=== PATIENT | male | born 1955 | race Caucasian/White ===

== ENCOUNTER 2016-08-20 06:55 | Emergency (ER) | payer OTHER ==
[~2016-08-20] VITALS: Ht 170.2 cm; Wt 86.0 kg
[2016-08-20 06:57] VITALS: Ht 170.2 cm; Wt 86.0 kg
[2016-08-20 07:38] LABS: ADD SCAN DIFF NO
[2016-08-20 07:44] LABS: BASOPHIL # 0.1 10^3/ul (0.0-0.1); BASOPHILS % 0.9 % (0.0-2.0); EOSINOPHILS # 0.2 10^3/ul (0.0-0.5); EOSINOPHILS % 3.8 % (0.0-7.0); HEMATOCRIT 45.4 % (42.0-52.0); HEMOGLOBIN 15.9 g/dl (14.0-18.0); LYMPHOCYTES # 2.2 10^3/ul (0.8-2.9); LYMPHOCYTES % 38.7 % (15.0-51.0); MEAN CORPUSCULAR HEMOGLOBIN 29.9 pg (29.0-33.0); MEAN CORPUSCULAR VOLUME 85.5 fl (82.0-101.0); MEAN PLATELET VOLUME 9.9 fl (7.4-10.4); MONOCYTE # 0.6 10^3/ul (0.3-0.9); MONOCYTES % 10.1 % (0.0-11.0); NEUTROPHIL # 2.6 10^3/ul (1.6-7.5); PLATELET COUNT 209 10^3/UL (140-415); RED BLOOD COUNT 5.31 10^6/ul (4.70-6.10); RED CELL DISTRIBUTION WIDTH 12.8 % (11.5-14.5); WHITE BLOOD COUNT 5.6 10^3/ul (4.8-10.8)
[2016-08-20] MEDS ORDERED: MAXZ25 PO (08:08)
[2016-08-20 08:09] LABS: ALANINE AMINOTRANSFERASE 43 IU/L (13-69); ALBUMIN 4.3 g/dl (3.3-4.9); ALBUMIN/GLOBULIN RATIO 1.22; ALKALINE PHOSPHATASE 71 IU/L (42-121); ANION GAP 11 (8-16); ASPARTATE AMINO TRANSFERASE 29 IU/L (15-46); BILIRUBIN,INDIRECT 0.3 mg/dl (0-1.1); BILIRUBIN,TOTAL 0.3 mg/dl (0.2-1.3); BLOOD UREA NITROGEN 14 mg/dl (7-20); CALCIUM 8.8 mg/dl (8.4-10.2); CARBON DIOXIDE 22 mmol/L (21-31); CHLORIDE 110 mmol/L (97-110); CREATININE 0.98 mg/dl (0.61-1.24); GLUCOSE 119 mg/dl (70-220); POTASSIUM 3.8 mmol/L (3.5-5.1); SODIUM 139 mmol/L (135-144); TOTAL PROTEIN 7.8 g/dl (6.1-8.1)
[2016-08-20] MEDS ORDERED: AMLO-147 PO (08:09)
[2016-08-20] MEDS ORDERED: ATOR10TA65 PO (08:09)
[2016-08-20 08:17] LABS: INR 1.01; PROTIME 13.3 Sec (12.2-14.2)
[2016-08-20 08:18] LABS: PARTIAL THROMBOPLASTIN TIME 26.9 Sec (25.0-35.0)
[2016-08-20 08:30] LABS: TROPONIN-I < 0.012 ng/ml (0.00-0.12)
[2016-08-20] MEDS ORDERED: PANT40TA3 PO (08:35)
[2016-08-20] MEDS ORDERED: ONDA4TAB14 PO (08:35)
--- NOTE | 2016-08-20 08:38 | ERD ---
ER Documentation Chief Complaint Date/Time DATE: 08/20/16 TIME: 08:38 Chief Complaint GENERALIZED ABDOMINAL AND BLOODY STOOL SINCE FRIDAY HPI Patient is a 61-year-old male with hypertension and high cholesterol presents with abdominal pain. The symptoms started on Friday. The patient has had diarrhea. There is been red blood mixed with stool. This happens with bowel movements. He denies syncope or loss of consciousness. He feels distended. He has had no treatment as of yet. He said this is the first time this is happened. Upon review of old medical records this is the patient's first visit to the emergency department. His primary doctor is Dr. Duran. ROS All systems reviewed and are negative except as per history of present illness. Medications Home Meds Active Scripts Pantoprazole* (Protonix*) 40 Mg Tablet.dr, 40 MG PO DAILY, #20 TAB Prov:VARUN ROJAS MD 08/20/16 Ondansetron (Ondansetron Odt) 4 Mg Tab.rapdis, 4 MG PO Q6H Y for NAUSEA AND/OR VOMITING, #30 TAB Prov:VARUN ROJAS MD 08/20/16 Reported Medications Atorvastatin Calcium (Atorvastatin Calcium) 10 Mg Tablet, 10 MG PO QHS, #30 TAB 08/20/16 Amlodipine Besylate* (Amlodipine Besylate*) 10 Mg Tablet, 10 MG PO DAILY, #30 TAB 08/20/16 Triamterene/Hctz* (Maxzide (37.5-25)*) 1 Each Tablet, 1 EACH PO DAILY, #30 TAB 08/20/16 Allergies Allergies: Coded Allergies: No Known Allergy (Unverified , 08/20/16) PMhx/Soc Hx Cardiac Disorders: Yes (htn, cholesterol) Hx Alcohol Use: No Hx Substance Use: No Hx Tobacco Use: No Smoking Status: Never smoker FmHx Family History: No diabetes Physical Exam Vitals Vital Signs Date Time Temp Pulse Resp B/P Pulse Ox O2 Delivery O2 Flow Rate FiO2 08/20/16 08:53 79 20 130/76 99 Room Air 08/20/16 07:27 Nasal Cannula 2 08/20/16 06:57 98.9 75 19 161/86 95 Physical Exam Const: No acute distress Head: Atraumatic Eyes: Normal Conjunctiva ENT: Normal External Ears, Nose and Mouth. Neck: Full range of motion..~ No meningismus. Resp: Clear to auscultation bilaterally Cardio: Regular rate and rhythm, no murmurs Abd: Soft, non tender, non distended. Normal bowel sounds Skin: No petechiae or rashes Back: No midline or flank tenderness Ext: No cyanosis, or edema Neur: Awake and alert Rectal: No active bleeding, no masses palpated, heme negative stool Result Diagram: 08/20/1672208/20/16722 Results 24 hrs Laboratory Tests Test 08/20/16 07:09 08/20/16 07:23 Stool Occult Blood NEGATIVE White Blood Count 5.610^3/ul Red Blood Count 5.3110^6/ul Hemoglobin 15.9g/dl Hematocrit 45.4% Mean Corpuscular Volume 85.5fl Mean Corpuscular Hemoglobin 29.9pg Mean Corpuscular Hemoglobin Concent 35.0g/dl Red Cell Distribution Width 12.8% Platelet Count 27278^3/UL Mean Platelet Volume 9.9fl Neutrophils % 46.0% Lymphocytes % 38.7% Monocytes % 10.1% Eosinophils % 3.8% Basophils % 0.9% Nucleated Red Blood Cells % 0.0/100WBC Neutrophils # 2.610^3/ul Lymphocytes # 2.210^3/ul Monocytes # 0.610^3/ul Eosinophils # 0.210^3/ul Basophils # 0.110^3/ul Nucleated Red Blood Cells # 0.010^3/ul Prothrombin Time 13.3Sec Prothrombin Time Ratio 1.0 INR International Normalized Ratio 1.01 Activated Partial Thromboplast Time 26.9Sec Sodium Level 139mmol/L Potassium Level 3.8mmol/L Chloride Level 110mmol/L Carbon Dioxide Level 22mmol/L Anion Gap 11 Blood Urea Nitrogen 14mg/dl Creatinine 0.98mg/dl Glucose Level 119mg/dl Calcium Level 8.8mg/dl Total Bilirubin 0.3mg/dl Direct Bilirubin 0.00mg/dl Indirect Bilirubin 0.3mg/dl Aspartate Amino Transf (AST/SGOT) 29IU/L Alanine Aminotransferase (ALT/SGPT) 43IU/L Alkaline Phosphatase 71IU/L Troponin I < 0.012ng/ml Total Protein 7.8g/dl Albumin 4.3g/dl Globulin 3.50g/dl Albumin/Globulin Ratio 1.22 Procedures/MDM EKG read by me: Rate/Rhythm: Regular rate and rhythm at a rate of 67 Intervals: Normal Impression: Sinus rhythm with benign early repolarization Patient is a 61-year-old male with hypertension and high cholesterol presents with rectal bleeding. The patient has a stable rectal bleed. There is no active bleeding at this time. Hemoglobin is normal. Other laboratory studies are normal. His stool was heme negative for blood. The patient will be discharged home and can follow-up with the primary doctor within 24-48 hours. The patient can return sooner for any worsening symptoms. Departure Diagnosis: Primary Impression: Rectal bleed Additional Impression: Abdominal pain Abdominal location: generalized Qualified Code: R10.84 - Generalized abdominal pain Condition: Fair Patient Instructions: Abdominal Pain, Rectal Bleed, Stable Referrals: Dr. Duran Additional Instructions: Llame al doctor MAANA y mandie doreen CARLOS PARA DENTRO DE 1-2 CANO.Dgale a la secretaria que nosotros le instruimos hacer esta carlos.Avise o llame si fraire condicin se empeora antes de la carlos. Regresa aqui si peor o no mejor. VARUN ROJAS MD August 20, 2016 08:38
[2016-08-20 08:53] VITALS: BP 130/76; PULSE 79; RESP 20
== END 2016-08-20 08:54 | disposition home or self-care (01) ==
LOC: E/R 06:55
DX: K62.5 Hemorrhage of anus and rectum (principal); I10 Essential (primary) hypertension
CPT/HCPCS: 36415; 80053; 82270; 84484; 85025; 85610; 85730; 86850; 86900; 86901; 93005

== ENCOUNTER 2017-05-26 07:13 | Emergency (ER) | END 2017-05-26 10:09 | disposition home or self-care (01) ==

== ENCOUNTER 2017-09-01 06:52 | Day surgery (SDC) | END 2017-09-01 11:21 | disposition home or self-care (01) ==

== ENCOUNTER 2018-10-14 19:35 | Emergency (ER) | payer SELFPAY ==
[~2018-10-14] VITALS: Ht 170.2 cm; Wt 81.1 kg
[~2018-10-14 19:35] MED LIST: AMLO-147 PO; ATOR10TA65 PO; MAXIDE PO
[2018-10-14 19:46] VITALS: Ht 170.2 cm; Wt 81.1 kg
[2018-10-14] MEDS ORDERED: KETOROLAC 30 MG INJ IM STA (20:54)
[2018-10-14] MEDS ORDERED: ALBU18HF INHALATION (21:54)
[2018-10-14] MEDS ORDERED: MED4DP PO (21:54)
[2018-10-14] MEDS ORDERED: BENZ200C68 PO (21:54)
[2018-10-14 22:09] VITALS: BP 135/78; PULSE 78; RESP 17
--- NOTE | 2018-10-14 22:28 | ERD ---
ER Documentation Chief Complaint Chief Complaint cough & chest congestion x 3 days HPI 63-year-old male presents the emergency department complaining of worsening cough for the past 3 days. He reports chest pain only while coughing. He also reports sore throat which she describes as a burning sensation. He tried [id number]-suv-[id number] medication without significant relief. He denies any shortness of breath. He denies any fevers or chills or other symptoms at this time. Symptoms are currently mild in severity. ROS All systems reviewed and are negative except as per history of present illness. Medications Home Meds Active Scripts Benzonatate* (Benzonatate*) 200 Mg Capsule, 200 MG PO TID PRN for COUGH, #15 CAP Prov:JUAN JOSÉ THOMSON PA-C 10/14/18 Albuterol Sulfate* (Ventolin HFA*) 18 Gm Hfa.aer.ad, 2 PUFF INHALATION Q4H, #1 INHALER Prov:JUAN JOSÉ THOMSON PA-C 10/14/18 Methylprednisolone* (Medrol* DOSE PACK) 4 Mg/Dose-Pack Tab.ds.pk, 4 MG PO . DIRECTED, #1 PACKET Prov:JUAN JOSÉ THOMSON PA-C 10/14/18 Reported Medications Triamterene/Hydrochlorothiazid (Maxzide 75-50 Tablet) 1 Tab Tablet, 1 TAB PO DAILY, #30 TAB 05/26/17 Atorvastatin Calcium (Atorvastatin Calcium) 10 Mg Tablet, 10 MG PO QHS, #30 TAB 08/20/16 Amlodipine Besylate* (Amlodipine Besylate*) 10 Mg Tablet, 10 MG PO DAILY, #30 TAB 08/20/16 Allergies Allergies: Coded Allergies: No Known Allergy (Unverified , 09/01/17) PMhx/Soc History of Surgery: Yes (BILAT CATATACT) Anesthesia Reaction: No Hx Neurological Disorder: No Hx Respiratory Disorders: No Hx Cardiac Disorders: Yes (HTN, HIGH CHOL) Hx Psychiatric Problems: No Hx Miscellaneous Medical Probl: No Hx Alcohol Use: Yes Hx Substance Use: No Hx Tobacco Use: No Smoking Status: Never smoker FmHx Family History: No diabetes Physical Exam Vitals Vital Signs Date Temp Pulse Resp B/P (MAP) Pulse Ox O2 O2 Flow FiO2 Time Delivery Rate 10/14/18 99.0 78 17 135/78 97 Room Air 22:09 (97) 10/14/18 98.8 51 20 168/72 95 19:46 (104) Physical Exam Const: No acute distress Head: Atraumatic Eyes: Normal Conjunctiva ENT: Normal External Ears, Nose and Mouth. Mild pharyngeal erythema. No tonsillar exudate or tonsillar enlargement. Uvula is midline. Airway is patent. Neck: Full range of motion. No meningismus. Resp: Clear to auscultation bilaterally Cardio: Regular rate and rhythm, no murmurs Skin: No petechiae or rashes Ext: No cyanosis, or edema Neur: Awake and alert Psych: Normal Mood and Affect Results 24 hrs Current Medications Medications Dose Sig/Joanne Start Time Status Last (Trade) Ordered Route PRN Stop Time Admin Dose Reason Admin Ketorolac 30 mg ONCE STAT 10/14/18 DC 10/14/18 Tromethamine IM 20:54 20:58 (Toradol) 10/14/18 20:55 [place] [address] Radiology Main Line: [phone] DIAGNOSTIC IMAGING REPORT Patient: ALIX HOLLINS : 1955 Age: 63 Sex: M MR #: [id number] DOS: 10/14/18 0000 Ordering MD: JUAN JOSÉ THOMSON PA-C Location: [facility] Room/Bed: PROCEDURE: One view chest radiograph. CLINICAL INDICATION: Cough TECHNIQUE: An AP view of the chest was obtained. COMPARISON: None. FINDINGS: Mediastinum: Unremarkable. Heart size: Normal. Pulmonary vasculature: No visible engorgement. Lungs: Clear. Costophrenic sulci: Clear. Bony structures: Grossly unremarkable for age. IMPRESSION: 1. Unremarkable single view chest. RPTAT:AAJJ Physician Darcie Date Time Electronically viewed and signed by Physician Darcie on 10/14/2018 21:50 GW/ CC: JUAN JOSÉ THOMSON PA-C [id number] Procedures/MDM 63-year-old male presents to the emergency department with signs and symptoms most consistent with acute bronchitis, likely viral etiology. Chest x-ray showed no sign of infiltrate. Low suspicion for pneumonia, pneumothorax, pulmonary embolism, aortic dissection, acute coronary syndrome, or other emergencies at this time. Patient will be discharged home in stable condition with prescription for Medrol Dosepak, benzonatate, Ventolin. He was advised to return to the department immediately for any new or worsening or concerning symptoms. Patient understands and agrees with plan. Patient's blood pressure was elevated (>120/80) but appears stable without evidence of hypertension emergency or urgency. The patient is to follow-up and pursue outpatient monitoring and therapy with their primary care physician within 1 week and return immediately if they have any new, worsening, or concerning symptoms. Disclaimer: Inadvertent spelling and grammatical errors are likely due to EHR/dictation software use and do not reflect on the overall quality of patient care. Also, please note that the electronic time recorded on this note does not necessarily reflect the actual time of the patient encounter. Departure Diagnosis: Primary Impression: Acute bronchitis Condition: Fair Patient Instructions: Acute Bronchitis [facility] Usted se melton hecho un examen mdico de control que le indica que no est en doreen condicin que requiera tratamiento urgente en el Departamento de Emergencia. Un estudio ms profundo y el tratamiento de fraire condicin pueden esperar sin ningn riesgo hasta que usted sea atendida/o en el consultorio de fraire mdico o doreen clnica. Es responsabilidad suya arreglar doreen carlos para el seguimiento del chad. MANEJO DE CONDICIONES NO URGENTES EN EL FUTURO 1) Si usted tiene un mdico de atencin primaria: Usted debera llamar a fraire mdico de atencin primaria antes de venir al departamento de emergencia. Despus de las horas de consultorio, fraire doctor o fraire asociado/a est disponible por telfono. El mdico o enfermero de ivonne en el servicio telefnico puede asesorarle por diego medio para atender el problema, o chad contrario se puede programar doreen carlos. 2) Si usted no tiene un mdico de atencin primaria: Llame al mdico o clnica de referencia que aparece abajo cande las horas de consultorio para hacer doreen carlos para que le vean. CLINICAS: [facility] [phone] [facility] [phone] [facility] [phone] [address] [place] [id number] [phone] [place] [id number] [phone] [facility]. [phone] [address] Additional Instructions: Llame al doctor MAANA y mandie doreen CARLOS PARA DENTRO DE 1-2 CANO.Dgale a la secretaria que nosotros le instruimos hacer esta carlos.Avise o llame si fraire condicin se empeora antes de la carlos. Regresa aqui si peor o no mejor. JUAN JOSÉ THOMSON PA-C Oct 14, 2018 22:28
== END 2018-10-14 22:09 | disposition home or self-care (01) ==
LOC: FTE 19:35
DX: J20.9 Acute bronchitis, unspecified (principal); I10 Essential (primary) hypertension
CPT/HCPCS: 71045; 96372; 99284; J1885